=== PATIENT | female | born 1955 ===

== ENCOUNTER 2022-07-12 08:48 | Outpatient (CLI) | payer OTHER ==
[~2022-07-12 08:48] MED LIST: ATENOLOL25 MG PO; KLONOPIN1 MG/TAB PO; LISINOPRIL5 MG PO; PAXIL40 MG; PREMARIN2.5 MG PO; SYNTHROID75 MCG; [UNRECOGNIZED DRUG - OTHER] TP
== END 2022-07-12 09:03 | disposition home or self-care (01) ==
LOC: SONOGRAMA 08:48
PROVIDERS: ATTEND Internal Medicine
DX: M75.102 Unspecified rotator cuff tear or rupture of left shoulder, not specified as traumatic (principal)

== ENCOUNTER → 2023-04-18 11:32 | Outpatient (CLI) | payer OTHER ==
[2023-04-18 12:30] LABS: URINE APPEARANCE Clear; URINE BILIRRUBIN Negative (NEGATIVE); URINE BLOOD Small; URINE COLOR Yellow; URINE GLUCOSE Negative (NEGATIVE); URINE LEUKOCYTE Negative; URINE NITRATE Negative; URINE PROTEIN Negative (NEGATIVE); URINE UROBILINOGEN 0.2 E.U./dl
[2023-04-18 12:42] LABS: URINE BACTERIA 6.2 uL (0.0-1933); URINE EPITHELIAL CELLS 2.6 uL (0.0-38.8); URINE RBC 9.9 uL (0.0-20.8); URINE WBC 3.6 uL (0.0-23.2)
== END | disposition home or self-care (01) ==
LOC: LAB 11:32
PROVIDERS: ATTEND Urology
DX: N39.0 Urinary tract infection, site not specified (principal)

== ENCOUNTER 2023-04-18 12:12 | Outpatient (CLI) | payer OTHER | END 2023-04-18 12:15 | disposition home or self-care (01) | LOC: SONOGRAMA 12:12 | PROVIDERS: ATTEND Urology | DX: N39.0 Urinary tract infection, site not specified (principal); N20.0 Calculus of kidney ==

== ENCOUNTER 2024-07-23 13:55 | Outpatient (CLI) | payer OTHER | END 2024-07-23 14:06 | disposition home or self-care (01) | LOC: TOM 13:55 | DX: R51.0 Headache with orthostatic component, not elsewhere classified (principal); R42 Dizziness and giddiness ==